=== PATIENT | female | born 1975 | race Caucasian/White ===

== ENCOUNTER 2017-12-13 05:40 | Day surgery (SDC) | payer BC, SELFPAY ==
[~2017-12-13] VITALS: Ht 165.1 cm; Wt 60.8 kg
[~2017-12-13 05:40] MED LIST: BACLOFEN10 MG PO; MAXALT MLT10 MG PO; MELOXICAM15 MG PO; NEURONTIN300 MG PO; TRAZODONE HCL100 MG PO
--- NOTE | 2017-12-13 07:44 | NUR ---
PT ALERT, ORIENTED AND SUPPORTED BY FAMILY. SHE SEEMED PREPARED, HAD FEW QUESTIONS, VERY PLEASANT, DR MARTIN CAME IN AND LET HIM VISIT WITH PT. WILL FOLLOW NEEDED
[2017-12-13] MEDS ORDERED: MAPAP325 MG PO (08:53)
[2017-12-13] MEDS ORDERED: OXYCODON-ACETA1 EAC2 PO (08:53)
[2017-12-13] MEDS ORDERED: IBUPROFEN600 MG PO (08:53)
--- NOTE | 2017-12-13 08:54 | NUR ---
12/13/17 0854 Maryam Leone 0841 RESP EVEN AND UNLABORED. PT ALSEEP WITH ORAL AIRWAY IN PLACE. RN NEEDED TO DO MINIMAL THIN THRUST TO MAINTAIN AIRWAY.
--- NOTE | 2017-12-13 09:37 | NUR ---
PT IS BACK TO DS FROM PACU. SHE IS DROWSY, BUT RESPONDS APPROPRIATELY TO QUESTIONS. REPORTING MINIMAL PAIN, WITH NO NAUSEA. WATER AND CRACKERS ON BEDSIDE TABLE WITHIN REACH. CALL LIGHT IS WITHIN REACH. NO OTHER C/O'S AT THIS TIME. WILL REASSESS WITHIN THE HOUR.
--- NOTE | 2017-12-13 10:49 | NUR ---
PT IS ASSISTED UP OOB WITH STANDBY ASSIST TO THE BATHROOM. PT IS ABLE TO VOID 600ML. SHE AMBULATES HERSELF BACK TO HER ROOM. PT HAS BEEN ABLE TO TOLERATE CRACKERS AND SIPS OF WATER. DC CRITERIA IS DISCUSSED, PT AND MOM VERBALIZE UNDERSTANDING. NO OTHER C/O'S AT THIS TIME.
--- NOTE | 2017-12-13 11:44 | NUR ---
DC INSTRUCTIONS ARE GIVEN IN FRONT OF PT'S MOM, BOTH VERBAIZE THEIR UNDERSTANDING AND ASK QUESTIONS. PT IS INSTRUCTED ON HOW BEST TO DRESS HERSELF, SHE VERBALIZES UNDERSTANDING.
--- NOTE | 2017-12-14 13:23 | OR ---
[facility] [address], [place] [address] Signed DATE OF OPERATION: 12/13/2017 SURGEON: Tacho Martin MD PREOPERATIVE DIAGNOSIS: Right inguinal hernia (painful). POSTOPERATIVE DIAGNOSIS: Right indirect inguinal hernia, painful. PROCEDURES: 1. Repair of right inguinal hernia. 2. Implantation of Prolene mesh underlay technique. ANESTHESIA: General LMA, Tacho Cole CRNA and local 10 mL of 0.25% Marcaine with epinephrine. INDICATION: This 42-year-old white woman works at [employer] in the [employer] department, does a fair amount of lifting. She is a patient of Dr. Anna Horne and Dr. Aayush Shields. She is referred for increasing pain in the right groin area. An ultrasound was performed on November 17, 2017 confirming a right inguinal hernia with protrusion of fat. There is no sign of hollow viscus herniation. She is admitted at this time to undergo repair of the hernia. Understand the risks of bleeding, infection, and recurrence. FINDINGS: The round ligament was easily identified distinct from the indirect hernia sac that was nearby. A small indirect sac was noted with herniated fat. There was no sign of hollow viscus. The fascia transversalis making of the floor of the inguinal canal was largely intact. The ring itself was somewhat enlarged. The round ligament was excised and the hernia contents reduced and implantation of Prolene mesh in an underlay technique was undertaken. Additionally, the tendon of the transversus abdominis was secured to the shelving edge of the inguinal ligament for additional coverage. DESCRIPTION OF PROCEDURE: The patient was brought to the operating room, given a general LMA-type anesthetic. Preoperative antibiotic Ancef was given. Sequential compression device stockings used and heparin subcutaneously administered. The right lower abdomen was prepared with a chlorhexidine solution and draped sterilely. A small incision was made cephalad to the pubic tubercle. Dissection was carried through the subcutaneous tissue with sharp and Electronically Signed By: TACHO MARTIN MD 12/14/17 1323 PATIENT NAME: NAT SOTO OPERATIVE REPORT DATE OF : 79 PHYSICIAN: TACHO MARTIN MD REPORT #: [id number] REPORT IS CONFIDENTIAL AND NOT TO BE RELEASED WITHOUT AUTHORIZATION [facility] [address], [place] [address] Signed electrocautery dissection identifying the external oblique fascia. This was incised along its fibers revealing the underlying ilioinguinal nerve. This was dissected free with meticulous care and reflected around the external oblique. With sharp and blunt dissection, the round ligament was dissected free from the surrounding tissue and elevated. It was transected distally. In the medial anterior aspect, a small indirect hernia sac could be identified. This was dissected free from the round ligament. The round ligament was ultimately transected and discarded. The hernia sac itself was incorporated only fat. There was no sign of hollow viscus within it. It was not large. The fascia of transversalis was largely preserved. A portion of it was incised allowing for blunt dissection the properitoneal fat away from the transversalis fascia and the herniated area able to be replaced to the properitoneal space. A segment of Prolene mesh was cut to an oval configuration and secured in an underlay technique with interrupted 2-0 Prolene suture. Good coverage of the small defect was accomplished with bolstering of the floor itself. Tendon of the transversus abdominis was secured to the shelving edge of Poupart's ligament with interrupted 2-0 Prolene as well. A 10 mL of 0.25% Marcaine with epinephrine was injected locally. The ilioinguinal nerve was replaced to its normal anatomic position and the external oblique reapproximated with running 2-0 Vicryl over it. Maria Del Carmen's layer was reapproximated with interrupted 2-0 Vicryl and skin closed with running subcuticular 3-0 Vicryl. Steri-Strips were applied as was a Mepilex silver sponge dressing and an OpSite. Blood loss was minimal. Complications none. MD TOSHA Miramontes/MODL /[id number] cc: MD Anna De Dios MD Electronically Signed By: TACHO MARTIN MD 12/14/17 1323 PATIENT NAME: NAT SOTO OPERATIVE REPORT DATE OF : 79 PHYSICIAN: TACHO MARTIN MD REPORT #: [id number] REPORT IS CONFIDENTIAL AND NOT TO BE RELEASED WITHOUT AUTHORIZATION
== END 2017-12-13 11:50 | disposition home or self-care (01) ==
LOC: DS 05:40
PROVIDERS: Surgery
PROC: 0YU50JZ Supplement Right Inguinal Region with Synthetic Substitute, Open Approach (ICD-10-PCS; principal; 2017-12-13 06:45)
DX: K40.90 Unilateral inguinal hernia, without obstruction or gangrene, not specified as recurrent (principal); F32.9 Major depressive disorder, single episode, unspecified; Z90.89 Acquired absence of other organs; Z98.51 Tubal ligation status; Z79.899 Other long term (current) drug therapy; Z98.890 Other specified postprocedural states
CPT/HCPCS: 00830; C1781; J0330; J0690; J1100; J1644; J1885; J2250; J2405; J2704; J2765; J3010; J7120

== ENCOUNTER 2020-10-02 08:55 | Day surgery (SDC) | payer BC ==
[~2020-10-02] VITALS: Ht 165.1 cm; Wt 60.5 kg
--- NOTE | ~2020-10-02 | OR ---
[facility] [address], [place] [address] Draft DATE OF OPERATION: 10/02/2020 SURGEON: Tacho Martin MD PREOPERATIVE DIAGNOSES: 1. Episodic right groin pain and swelling. 2. History of right inguinal hernia repair with mesh (2018). POSTOPERATIVE DIAGNOSIS: Right femoral hernia. PROCEDURES: 1. Repair of right femoral hernia. 2. Implantation of Prolene mesh. ANESTHESIA: General endotracheal; Colve Anne, BRUSHING OPERATOR and local 10 mL of 0.25% Marcaine with epinephrine. INDICATIONS: This 45-year-old white woman underwent right inguinal hernia repair by me two years ago in 2018. She is a patient of Dr. Shields and Dr. Horne. Operation at that time included implantation of Prolene mesh in an underlay technique. The patient works in [employer], does a fair amount of lifting and so forth and recently noted severe and nearly disabling right groin pain. She thought that there was episodic swelling as well. Clinical examination did not show signs of recurrent hernia, but there was some boggy soft tissue in the region. It was not beneath the inguinal ligament on my examination. She underwent a CT scan with and without Valsalva maneuver, this showed no sign of hollow viscus within a recurrent hernia, but did show some fat which was unclear as to its etiology upon my review with the radiologist, Dr. Justine Lambert. She is admitted at this time to undergo exploration of the area and remedy of the problem if it can be determined the underlying problem. The risks of bleeding, infection, failure to cure the problem, and other unforeseen complications were reviewed in detail with her. She understands and wished to proceed. FINDINGS: The previous hernia repair was completely intact. The defect was that of a femoral hernia. The properitoneal fat was the likely herniated viscus. The iliac artery and PATIENT NAME: NAT SOTO OPERATIVE REPORT DATE OF : 79 REPORT #: [id number] PHYSICIAN: TACHO MARTIN MD PCP: SCARLET SHIELDS MD REPORT IS CONFIDENTIAL AND NOT TO BE RELEASED WITHOUT AUTHORIZATION [facility] [address], [place] [address] Draft iliac vein were easily identified as was the empty space, which contained the hernia itself. Repair consisted of a judicious implantation of mesh and security of the conjoined tendon to the iliopubic tract with mesh augment and without encumbrance of the iliac vein or artery. DESCRIPTION OF PROCEDURE: The patient was brought to the operating room, given a general endotracheal anesthetic. Preoperative antibiotic Ancef was given. Sequential compression device stockings used and heparin subcutaneously administered. The lower abdomen area was clipped and prepared with a chlorhexidine solution and draped sterilely. The previous incision typical of right inguinal hernia incision was used for the incision. Palpation revealed no sign of abnormality at this time. Dissection was carried through the scar of the right groin incision, dissecting mostly with electrocautery. The external oblique was identified and the area freed up. Examination in the medial inferior aspect showed an area that appeared to be somewhat of a defect in what would be normally speaking in the external ring (which had been reapproximated previously). Further dissection, unroofing meticulously [id number] showed herniated fat, which was coming from beneath the inguinal ligament essentially. This area was incised and marked fully, identifying well the iliac artery and iliac vein. Clearly this represented a femoral hernia. With further blunt dissection, the properitoneal fat obviously was withdrawn, no doubt accounting for her recent symptoms of herniated properitoneal fat through the femoral canal. There was no hollow viscus. A branch of the iliac vein was secured with 3-0 silk suture. A segment of Prolene mesh was cut to a horseshoe configuration concurrent to her anatomy and placed in the properitoneal space. It was secured to the iliopubic tract as well as the conjoined tendon or essentially tendon of the transversus abdominis. Those fiber layers were then reapproximated together more fully with special care to avoid encumbrance of the iliac vein or artery. The remnants of the external sheath were reapproximated with interrupted 2-0 Prolene as well, as was the external oblique and fibers ilioinguinal ligament. A 10 mL of 0.25% Marcaine with epinephrine injected locally. Maria Del Carmen layer was reapproximated with interrupted 2-0 Vicryl and skin closed with running subcuticular 3-0 Vicryl. Steri-Strips were applied. The patient tolerated the procedure well, was ultimately extubated and transferred to the recovery room in good condition, having suffered no complication. Sponge, needle, and instrument counts reported as correct x3. Tacho Martin MD PATIENT NAME: NAT SOTO OPERATIVE REPORT DATE OF : 79 REPORT #: [id number] PHYSICIAN: TACHO MARTIN MD PCP: SCARLET SHIELDS MD REPORT IS CONFIDENTIAL AND NOT TO BE RELEASED WITHOUT AUTHORIZATION [facility] [address] [place], [place] [address] Draft /[facility] /[id number] cc: MD Scarlet Cash MD Copies: PATEL HORNE MD, RUSSELL BARR MD ~ PATIENT NAME: NAT SOTON OPERATIVE REPORT DATE OF : 79 REPORT #: [id number] PHYSICIAN: TACHO MARTIN MD PCP: SCARLET SHIELDS MD REPORT IS CONFIDENTIAL AND NOT TO BE RELEASED WITHOUT AUTHORIZATION
[~2020-10-02 08:55] MED LIST changes: +CYMBALTA20 MG PO; +IBUPROFEN600 MG PO; +MAPAP325 MG PO; +OXYCODON-ACETA1 EAC2 PO
--- NOTE | 2020-10-02 13:06 | NUR ---
10/02/20 Edy6 Mariela Guerra 1249- PT ARRIVES TO PACU NONAROUSABLE TO NOXIOUS STIMULI WITH AN OPA IN PLACE. RESP EVEN AND UNLABORED. OXYGEN SAT HIGH 90'S TO 100% ON 6L VIA MASK. 1251- PT IS GRIMACING AND MOVING AROUND IN THE BED. INSTRUCTED PT TO OPEN HER MOUTH TO REMOVE OPA. PT IS BITING DOWN ON THE OPA AND IS UNABLE TO FOLLOW INSTUCTIONS TO OPEN HER MOUTH. OPA LEFT IN PLACE AT THIS TIME. 1254- PT IS ROLLING AROUND ONTO HER RIGHT SIDE. ATTEMPTING TO TELL PT SHE IS DONE WITH SURGERY AND TO OPEN HER MOUTH TO REMOVE THE OPA. PT IS ABLE TO FOLLOW THIS INSTRUCTION NOW AND OPA REMOVED. PT CONTINUES TO MOVE AROUND IN THE BED. PT APPEARS CONFUSED AND IS NOT ANSWERING QUESTIONS YET. PT BEING REORIENTED.
[2020-10-02] MEDS ORDERED: OXYCODON-ACETA1 EAC2 PO (13:11)
[2020-10-02] MEDS ORDERED: IBUPROFEN600 MG PO (13:11)
[2020-10-02] MEDS ORDERED: ACETAMINOPHEN500 MG PO (13:12)
--- NOTE | 2020-10-02 14:30 | NUR ---
REPORTS NAUSEA IS COMPLETELY RESOLVED. PT EATING JELLO AND CRACKERS AND TAKING SIPS OF WATER. MEDICATED FOR MILD SURGICAL SITE PAIN PER EMAR. PT EDUCATED ON LOCAL ANESTHETIC WEARING OFF.
--- NOTE | 2020-10-02 14:50 | NUR ---
MEDICATED FOR NAUSEA PER EMAR. PT NOW REPORTS 1/10 SURGICAL SITE PAIN.
--- NOTE | 2020-10-02 15:04 | NUR ---
PT HAS COOL AIR BLOWING ON HER DUE TO NAUSEA. PT RESTING IN LOCKED AND LOWERED BED, CALL LIGHT WITHIN REACH, MOTHER AT THE BEDSIDE, NO FURTHER REQUESTS AT THIS TIME.
--- NOTE | 2020-10-02 15:30 | NUR ---
PT USED CALL LIGHT TO REPORT MORE NAUSEA. DR. MARTIN CONTACTED FOR ORDER OF ANTI NAUSEA MEDICATION.
--- NOTE | 2020-10-02 15:58 | NUR ---
IN TO ADMINISTER MEDICATION AND DO ASSESSMENT. PT STILL REPORTS NAUSEA. PT RESTING IN LOCKED AND LOWERED BED, SIDE RAILS UP, CALL LIGHT WITHIN REACH. MOTHER AT THE BEDSIDE, NO FURTHER REQUESTS AT THIS TIME.
--- NOTE | 2020-10-02 16:32 | NUR ---
PT UP TO USE THE RESTROOM. PT AMBULATES INDEPENDENTLY AND VOIDS WITHOUT COMPLICATION. PT BACK RESTING IN LOCKED AND LOWERED BED, SIDE RAILS UP, CALL LIGHT WITHIN REACH, MOTHER AT THE BEDSIDE.
--- NOTE | 2020-10-02 16:52 | NUR ---
DISCHARGE INSTRUCTIONS DISCUSSED AND QUESTIONS AND CONCERNS ANSWERED. PT LEFT THE UNIT VIA WHEELCHAIR. PT TRANSFERED INDEPENDENTLY FROM WHEELCHAIR TO VEHICLE WITH NO COMPLICATIONS. MOTHER SAM PROVIDED TRANSPORTATION.
== END 2020-10-02 16:45 | disposition home or self-care (01) ==
LOC: DS 08:55 → OPS 08:55 → DS 10:45 → OPS 10:45
PROVIDERS: ATTEND Surgery
PROC: 0YU70JZ Supplement Right Femoral Region with Synthetic Substitute, Open Approach (ICD-10-PCS; principal; 2020-10-02 10:45)
DX: K41.90 Unilateral femoral hernia, without obstruction or gangrene, not specified as recurrent (principal); F41.9 Anxiety disorder, unspecified; R63.4 Abnormal weight loss; Z79.899 Other long term (current) drug therapy; Z79.1 Long term (current) use of non-steroidal anti-inflammatories (NSAID); Z98.890 Other specified postprocedural states; Z68.22 Body mass index [BMI] 22.0-22.9, adult
CPT/HCPCS: C1781; J0690; J1100; J1644; J1885; J2001; J2250; J2405; J2550; J2704; J3010; J7121

== ENCOUNTER 2020-11-10 12:58 | Day surgery (SDC) | payer BC ==
[~2020-11-10 12:58] MED LIST changes: +ACETAMINOPHEN500 MG PO
--- NOTE | 2020-11-10 15:11 | NUR ---
11/10/20 1511 Maryam Moran 1506 PT ARRIVED TO PACU ON 3L VIA NC, PT AWAKE AND TALKING TO RN. VSS. COOL WASH CLOTH ON HEAD. PT DENEIS NAUSEA AND PAIN AT THIS TIME. PLAN OF CARE DISCUSSED.
--- NOTE | 2020-11-12 13:31 | OR ---
[facility] [address] [place], [place] [address] Signed DATE OF OPERATION: 11/10/2020 SURGEON: Tacho Martin MD PREOPERATIVE DIAGNOSES: Weight loss, abdominal bloating, poor appetite, diarrhea. POSTOPERATIVE DIAGNOSES: 1. Hiatal hernia without associated esophagitis. 2. Mild proximal gastritis. 3. Normal-appearing colon. PROCEDURES: 1. Esophagogastroduodenoscopy with biopsy. 2. Total colonoscopy to cecum with biopsies. ANESTHESIA: Intravenous sedation, fentanyl 250 mcg, Versed 15 mg (total). INDICATIONS: This 45-year-old white woman is a patient of and Dr. Shields. She has suffered a significant weight loss progressively over the past few months and has complaints of abdominal bloating, but no focal upper abdominal pain. She does have a history of right femoral hernia repair by me recently following a CT scan of the pelvis, which showed a fluid collection in the right lower quadrant and marked tenderness in the area. Additionally noted was a 30 mm cyst of the low left cervix. The patient has gone from 138 pounds to 107 pounds. She has had a fair amount of diarrhea at least every day for the past three weeks, which is troublesome as well. She has up to six bowel movements a day. She has no associated bleeding. She has not had biliary workup, but does have family history of biliary disease. She does not have typical biliary symptoms otherwise. She is admitted at this time to undergo upper endoscopy as well as colonoscopy to assess for inflammatory bowel disease and other causes of her problems. The risks of bleeding, infection, and perforation were reviewed with her, she understands and wished to proceed. FINDINGS: Upper endoscopy showed a poor flap valve consistent with hiatal hernia but no sign of esophagitis proper. She did have some mild diffuse gastritis. There was no ulcer. The Electronically Signed By: TACHO MARTIN MD 11/12/20 1337 PATIENT NAME: NAT SOTO OPERATIVE REPORT DATE OF : 79 REPORT #: [id number] PHYSICIAN: TACHO MARTIN MD PCP: SCARLET SHIELDS MD REPORT IS CONFIDENTIAL AND NOT TO BE RELEASED WITHOUT AUTHORIZATION [facility] [address] [place], [place] [address] Signed duodenum was normal. CLOtest was negative. On colonoscopy, the prep was excellent. Complete colonoscopy was undertaken of the cecum. There was no gross evidence of colitis, though the possibility of occult colitis remains. There was no evidence of diverticulosis or polyps. Multiple attempts in quite a lengthy effort was maintained to intubate the ileum, but it was never forthcoming. In aggregate, the colon appeared grossly normal. DESCRIPTION OF PROCEDURE: The patient was brought to the endoscopy suite and given topical lidocaine hypopharyngeal anesthesia and placed in lateral decubitus position, given intravenous sedation to the point of slurred speech and nystagmus with full cardiopulmonary monitoring. A bite block was placed. An Olympus video upper endoscope was passed in the hypopharynx. The vocal cords were transiently visualized and found to be normal. Scope was advanced to the esophagus throughout its length, it was normal. This included the distal portion. The scope was advanced to the stomach, which was insufflated with air. There was no evidence of bile within the stomach. Rugal folds appeared normal. The scope was passed to the antrum, which appeared normal as did the pylorus. The scope was passed through the pylorus into the duodenum, which was normal. Biopsies were obtained of the duodenum to assess for celiac disease. The scope was withdrawn and antral biopsies were obtained for both BRIAN and pathologic testing. Retroflexed view showed a poor flap valve and retroflex withdrawal allowed for easy visualization of the distal esophagus. This was all consistent with a poor flap valve and small hiatal hernia. There was a mild proximal gastritis, biopsies were obtained there. CLOtest biopsies were obtained and subsequently found to be negative after 30 minutes. The scope was withdrawn to the distal esophagus which was biopsied. The mucosa was normal. The scope was withdrawn to the mid esophagus which was normal. The scope was ultimately removed. Plans were then made for colonoscopy. Additional sedation was given. Digital rectal examination was normal. An Olympus video colonoscope was passed in the rectum and manipulated throughout the colon ultimately intubating the cecum itself. The prep was quite good. The ileocecal valve was slit-like and small and very subtle. Multiple attempts were made to intubate it. Various maneuvers including abdominal wall stabilization still failed to allow for adequate intubation of the ileum. It was transiently seen but not much can be said more than that. Ultimately, further efforts were deemed inadvisable and on that basis the cecum was then biopsied to assess for occult colitis. The scope was withdrawn and random biopsies were taken throughout including transverse colon, left colon and rectum. Retroflexed view was normal. Scope was removed and the patient was taken to the Electronically Signed By: TACHO MARTIN MD 11/12/20 0802 PATIENT NAME: NAT SOTO OPERATIVE REPORT DATE OF : 79 REPORT #: [id number] PHYSICIAN: TACHO MARTIN MD PCP: SCARLET SHIELDS MD REPORT IS CONFIDENTIAL AND NOT TO BE RELEASED WITHOUT AUTHORIZATION [address] [address] Signed recovery room in good condition. CONCLUDING DIAGNOSES: 1. Upper endoscopic evaluation showed a mild diffuse proximal gastritis, hiatal hernia without esophagitis. 2. Colon normal grossly. PLAN: We will recommend empiric treatment with Flagyl 250 p.o. t.i.d. We will initiate Carafate 1 g p.o. q.i.d. on empty stomach. We will organize for gallbladder ultrasound and if negative, consideration for CCK-HIDA test. MD TOSHA Miramontes/MODL /[id number] cc: MD Cornelius Cash Dr Copies: PATEL ROJAS MD ~ Electronically Signed By: TACHO MARTIN MD 11/12/20 1331 PATIENT NAME: NAT SOTO OPERATIVE REPORT DATE OF : 79 REPORT #: [id number] PHYSICIAN: TACHO MARTIN MD PCP: SCARLET SHIELDS MD REPORT IS CONFIDENTIAL AND NOT TO BE RELEASED WITHOUT AUTHORIZATION
--- NOTE | 2020-11-13 13:51 | PATH ---
[facility] [address] [facility] [place], [place] [address] Signed SPECIMEN(S): A DUODENAL BIOPSY SPECIMEN(S): B ANTRUM/PYLORUS BIOPSY SPECIMEN(S): C PROXIMAL STOMACH SPECIMEN(S): D DISTAL ESOPHAGUS SPECIMEN(S): E CECUM SPECIMEN(S): F HEPATIC FLEXURE SPECIMEN(S): G TRANSVERSE COLON SPECIMEN(S): H RECTUM BIOPSY SPECIMEN SOURCE: A. DUODENAL BIOPSY B. ANTRUM/PYLORUS BIOPSY C. PROXIMAL STOMACH D. DISTAL ESOPHAGUS E. CECUM F. HEPATIC FLEXURE G. TRANSVERSE COLON H. RECTUM BIOPSY CLINICAL HISTORY: Diarrhea, abdominal bloating, weight loss. Dx: Gastritis, hiatal hernia, normal appearing colon. MICROSCOPIC DESCRIPTION: Histologic sections of all submitted blocks are examined by light microscopy. These findings, together with the gross examination, support the pathologic diagnosis. FINAL PATHOLOGIC DIAGNOSIS: A. Duodenum, biopsy: - Reactive duodenal mucosa with minimally increased intraepithelial lymphocytosis, negative for villous blunting. B. Antrum/pylorus, biopsy: - Minimal chronic inactive gastritis. - Negative for intestinal metaplasia. - Negative for Helicobacter organisms on routine stain. C. Proximal stomach, biopsy: - Minimal chronic inactive gastritis. - Negative for intestinal metaplasia. - Negative for Helicobacter organisms on routine stain. D. Distal esophagus, biopsy: - Fragments of reactive squamous epithelium with minimal reflux changes. PATIENT NAME: NAT SOTO PATHOLOGY DATE OF : 79 REPORT #: [id number] PHYSICIAN: CHRIS PATHOLOGY PCP: SCARLET GORDILLO MD REPORT IS CONFIDENTIAL AND NOT TO BE RELEASED WITHOUT AUTHORIZATION [facility] [address] [place], [place] [address] Signed - Negative for intestinal metaplasia and dysplasia. E. Cecum, biopsy: - Benign colonic mucosa. - Negative for acute inflammation, granulomas, and microscopic colitis. F. Hepatic flexure, biopsy: - Benign colonic mucosa. - Negative for acute inflammation, granulomas, and microscopic colitis. G. Transverse colon, biopsy: - Benign colonic mucosa. - Negative for acute inflammation, granulomas, and microscopic colitis. H. Rectum, biopsy: - Benign colonic mucosa. - Negative for acute inflammation, granulomas, and microscopic colitis. DDF:cml:C2NR GROSS DESCRIPTION: Eight specimens are received in eight containers, labeled "SotoNat szymanski." A. The specimen, labeled "SotoNat szymanski, #1," and designated on the requisition "duodenal biopsy," is received in formalin and consists of one mack soft tissue fragment that measures 0.5 cm in greatest dimension. The specimen is entirely submitted in cassette (A1). B. The specimen, labeled "SotoNat szymanski, #2," and designated on the requisition "antrum/pylorus," is received in formalin and consists of one mack soft tissue fragment that measures 0.3 cm in greatest dimension. The specimen is entirely submitted in cassette (B1). C. The specimen, labeled "Nat Soto, #3," and designated on the requisition "proximal stomach," is received in formalin and consists of one mack soft tissue fragment that measures 0.4 cm in greatest dimension. The specimen is entirely submitted in cassette (C1). D. The specimen, labeled "Nat Soto, #4," and designated on the requisition "distal esophagus biopsy," is received in formalin and consists of three white-mack soft tissue fragment(s) that measure 0.3-0.4 cm in greatest dimension. The specimen is entirely submitted in cassette (D1). E. The specimen, labeled "Nat Soto, #5," and designated on the requisition "cecum," is received in formalin and consists of two mack soft tissue fragment(s) that measure 0.3 and 0.3 cm in greatest dimension. The specimen is entirely submitted in cassette (E1). F. The specimen, labeled "Nat Soto, #6," and designated on the requisition "hepatic flexure," is received in formalin and consists of one mack soft tissue fragment that measures 0.5 cm in PATIENT NAME: NAT SOTO PATHOLOGY DATE OF : [birth year] REPORT #: [id number] PHYSICIAN: CHRIS JORDAN PCP: SCARLET GORDILLO MD REPORT IS CONFIDENTIAL AND NOT TO BE RELEASED WITHOUT AUTHORIZATION [facility] [address] [place] [id number] Signed greatest dimension. The specimen is entirely submitted in cassette (F1). G. The specimen, labeled "Nat Soto, #7," and designated on the requisition "transverse colon," is received in formalin and consists of two mack soft tissue fragment(s) that measure 0.3 and 0.3 cm in greatest dimension. The specimen is entirely submitted in cassette (G1). H. The specimen, labeled "Nat Soto, #8," and designated on the requisition "rectum biopsy," is received in formalin and consists of two mack soft tissue fragment(s) that measure 0.3 and 0.4 cm in greatest dimension. The specimen is entirely submitted in cassette (H1). FB (under the direct supervision of a pathologist) The Gross Description was prepared using a voice recognition system. The report was reviewed for accuracy; however, sound-alike word errors, addition and/or deletions may occur. If there is any question about this report, please contact Client Services. PERFORMING LABORATORY: The technical component was performed by [employer] [facility] [place] [address] (Managed Services Sales Consultant: Lauren Valladares MD; CLIA# [id number]). Professional interpretation was performed by [facility] [place] [address] (CLIA# [id number]). Diagnostician: Federico Peraza DO Pathologist Electronically Signed 11/13/2020 Copies: ~ PATIENT NAME: NAT SOTO PATHOLOGY DATE OF : [birth year] REPORT #: [id number] PHYSICIAN: CHRIS JORDAN PCP: SCARLET GORDILLO MD REPORT IS CONFIDENTIAL AND NOT TO BE RELEASED WITHOUT AUTHORIZATION
== END 2020-11-10 15:52 | disposition home or self-care (01) ==
LOC: OPS 12:58 → DS 14:00 → OPS 14:00
PROVIDERS: ATTEND Surgery
PROC: 0DB68ZX Excision of Stomach, Via Natural or Artificial Opening Endoscopic, Diagnostic (ICD-10-PCS; 2020-11-10)
PROC: 0DB38ZX Excision of Lower Esophagus, Via Natural or Artificial Opening Endoscopic, Diagnostic (ICD-10-PCS; 2020-11-10)
PROC: 0DBH8ZX Excision of Cecum, Via Natural or Artificial Opening Endoscopic, Diagnostic (ICD-10-PCS; 2020-11-10)
PROC: 0DBL8ZX Excision of Transverse Colon, Via Natural or Artificial Opening Endoscopic, Diagnostic (ICD-10-PCS; 2020-11-10)
PROC: 0DBP8ZX Excision of Rectum, Via Natural or Artificial Opening Endoscopic, Diagnostic (ICD-10-PCS; 2020-11-10)
PROC: 0DB98ZX Excision of Duodenum, Via Natural or Artificial Opening Endoscopic, Diagnostic (ICD-10-PCS; principal; 2020-11-10 14:00)
PROC: 0DB78ZX Excision of Stomach, Pylorus, Via Natural or Artificial Opening Endoscopic, Diagnostic (ICD-10-PCS; 2020-11-10 14:00)
DX: K29.50 Unspecified chronic gastritis without bleeding (principal); K44.9 Diaphragmatic hernia without obstruction or gangrene; F41.9 Anxiety disorder, unspecified; K21.00 Gastro-esophageal reflux disease with esophagitis, without bleeding; Z79.899 Other long term (current) drug therapy; Z79.1 Long term (current) use of non-steroidal anti-inflammatories (NSAID)
CPT/HCPCS: 99153; G0500; J2250; J3010; J7121

== ENCOUNTER 2021-01-15 05:40 | Day surgery (SDC) | payer BC ==
[~2021-01-15] VITALS: Ht 165.1 cm; Wt 47.0 kg
[~2021-01-15 05:40] MED LIST changes: +MELOXICAM10 MG PO
--- NOTE | 2021-01-15 08:59 | NUR ---
01/15/21 0859 Mariela Guerra 0852- PT ARRIVES TO PACU NONAROUSABLE TO NOXIOUS STIMULI WITH AN OPA IN PLACE. PT NEEDING A JAW THRUST TO MAINTAIN PATENT AIRWAY. RESP EVEN AND UNLABORED. OXYGEN SAT HIGH 90'S TO 100% ON 10L VIA MASK.
[2021-01-15] MEDS ORDERED: MOTRIN IB200 MG PO (09:07)
[2021-01-15] MEDS ORDERED: TYLENOL EXTRA500 MG PO (09:09)
[2021-01-15] MEDS ORDERED: ENDOCET 7.5-321 EACH PO (09:10)
--- NOTE | 2021-01-15 09:43 | NUR ---
PATIENT TO ROOM FROM PACU, BEDSIDE REPORT FROM MARVEL LINDA. PATIENT HAS 4 PUNCTURE SITES FROM SURGERY, STERI STRIPS INTACT WITH SMALL AMOUNT OF RED DRAINAGE. PATIENT APPEARS DROWSY, AWAKES TO VERBAL STIMULI. SKIN WARM AND CLAMMY, PATIENT AFEBRILE. APPEARS TO BE POSSIBLY SIDE EFFECT FROM MORPHINE ADMINISTRATION IN OR. PROIVED COOL AIR. PATIENT REPORTS NO PAIN, NO NAUSEA.
--- NOTE | 2021-01-15 10:37 | NUR ---
PATIENT REPORTS NAUSEA AND REQUESTING MEDICAITON. CALL TO DR. MARTIN NEW ORDER FOR PHENERGAN 12.5 MG IV. UPDATED PATIENT ON POC. STERI STRIPS INTACT WITH NO NEW DRAINAGE. VSS. PATIENT REPORTS 0/10 PAIN. NO OTHER NEEDS AT THIS TIME.
--- NOTE | 2021-01-15 12:09 | NUR ---
PATIENT AWAKE, PHENERGAN IV EFFECTIVE. PATIENT NOW EATING SNACKS. RATES PAIN 3/10 ON PAIN SCALE. DISCUSSED PAIN MANAGEMENT. PLAN TO ADMINISTER PAIN MEDICATION PER MAR. NO OTHER NEEDS AT THIS TIME.
--- NOTE | 2021-01-15 13:23 | NUR ---
PATIENT UP TO BATHROOM, TOLERATED ACTIVITY. PATIENT VOIDED 400 ML OF CLEAR YELLOW URINE. SMALL AMOUNT OF DRAINAGE AT SURGICAL SITE, > AT UNBILICUS SITE. REINFORCED WITH BANDAIDS OVER STERI STRIPS. PATIENT BACK TO ROOM RESTING IN BED. WITH ACTIVITY PATIENT REPORTED FEELING FLUSHED, NOTED SOME REDNESS ON CHEST. PATIENT USED SPLINTING METHOD WITH GETTING UP. ENCOURAGED PATIENT TO COUGH AND DEEP BREATHE.
--- NOTE | 2021-01-15 13:45 | NUR ---
PROVIDED PATIENT WITH DISCHARGE INSTRUCTION. PATIENT VERBALIZED UNDERSTANDING. ANSWERED QUESTIONS AND CONCERNS. REMOVED IV, CATH INTACT. PATIENT DRESSED SELF. PATIENT PROVIDED WITH WHEELCHAIR RIDE TO CAR. APPEARED TO TOLERATE ACTIVITY WELL.
--- NOTE | 2021-01-16 11:23 | PATH ---
[facility] [address] [facility] [place], [place] [address] Signed SPECIMEN(S): A GALLBLADDER SPECIMEN SOURCE: A. GALLBLADDER CLINICAL HISTORY: Laparoscopic cholecystectomy. Pre: Postprandial bloating, upper abdominal pain, loss of appetite, chronic diarrhea, acalculous cholecystitis. FINAL PATHOLOGIC DIAGNOSIS: Gallbladder, cholecystectomy: - Chronic cholecystitis. NAL:cml:C2NR MICROSCOPIC EXAMINATION: Histologic sections of all submitted blocks are examined by light microscopy. These findings, together with the gross examination, support the pathologic diagnosis. GROSS DESCRIPTION: The specimen, labeled "RP, gallbladder," is received in formalin and consists of Specimen: Previously opened gallbladder. Dimensions: 6.5 cm in length and 4.3 cm in inner circumference. Serosa: Violaceous and smooth. Cystic Duct: Unobstructed. Calculi: No calculi are grossly identified within the gallbladder or within the container. Mucosa: Green-brown and velvety. Wall thickness: 0.3 cm. Lymph node: No pericystic lymph nodes are grossly identified. Additional: None. Mangle Tender sections are submitted in cassette (A1). JS (under the direct supervision of a pathologist) The Gross Description was prepared using a voice recognition system. The report was reviewed for accuracy; however, sound-alike word errors, addition and/or deletions may occur. If there is any question about this report, please contact Client Services. PERFORMING LABORATORY: The technical component was performed by [employer], Tamar Estradafernando K[facility], PATIENT NAME: NAT SOTO PATHOLOGY DATE OF : [birth year] REPORT #: [id number] PHYSICIAN: CHRIS JORDAN PCP: SCARLET GORDILLO MD REPORT IS CONFIDENTIAL AND NOT TO BE RELEASED WITHOUT AUTHORIZATION [facility] [address] [place], [place] [address] [place] [id number] (Administrative Office Manager: Lauren Valladares MD; CLIA# [id number]).Professional interpretation was performed by [facility], [address] [address] (CLIA# [id number]). Diagnostician: Chantal Ferreira MD Pathologist Electronically Signed 01/16/2021 Copies: ~ PATIENT NAME: NAT SOTO PATHOLOGY DATE OF : [birth year] REPORT #: [id number] PHYSICIAN: CHRIS JORDAN PCP: SCARLET GORDILLO MD REPORT IS CONFIDENTIAL AND NOT TO BE RELEASED WITHOUT AUTHORIZATION
--- NOTE | 2021-01-17 10:16 | OR ---
[facility] [address] [place], [place] [address] Signed DATE OF OPERATION: 01/15/2021 SURGEON: Tacho Martin MD PREOPERATIVE DIAGNOSES: 1. Chronic acalculous cholecystitis with significant weight loss. 2. CCK-HIDA test ejection fraction of 4% with reproduction of symptoms of right subcostal pain and bloating fullness. POSTOPERATIVE DIAGNOSES: 1. Chronic acalculous cholecystitis with significant weight loss. 2. CCK-HIDA test ejection fraction of 4% with reproduction of symptoms of right subcostal pain and bloating fullness. PROCEDURE: 1. Laparoscopic cholecystectomy with intraoperative cholangiogram. 2. Surgeon-directed fluoroscopy. ANESTHESIA: General endotracheal; Tacho Cole CRNA and local 20 mL of 0.25% Marcaine with epinephrine. INDICATION: This 45-year-old white woman is a patient of Dr. Horne and Dr. Shields. She has had weight loss largely related to inability and unwilling to eat over time. Notably, she underwent right inguinal hernia repair by me in 2017. Subsequently in September of 2020, a right femoral hernia repair. Significant right groin pain that she had at that time resolved. She has had persistent weight loss and feeling "run down." She has had abdominal bloating following meals and marked diminishment of her appetite. A pelvic CT scan was performed concordant to her right inguinal and femoral hernia repair showing no sign of pelvic mass or anything of that sort. A gallbladder ultrasound performed November 25, 2020, showed no sign of stones of the gallbladder. Subsequent CCK-HIDA test performed December 11, 2020, showed an ejection fraction of 3% with duplication of some of her symptoms with CCK infusion. She has an extensive family history of biliary disease requiring cholecystectomy. Notably also, however, it is noted her father suffered pancreatic cancer, discovered at the time of cholecystectomy several years ago, for which she ultimately underwent a Whipple resection and remains alive and well without sign of recurrent disease. Electronically Signed By: TACHO MARTIN MD 01/17/21 1016 PATIENT NAME: NAT SOTO OPERATIVE REPORT DATE OF : 79 REPORT #: [id number] PHYSICIAN: TACHO MARTIN MD PCP: SCARLET SHIELDS MD REPORT IS CONFIDENTIAL AND NOT TO BE RELEASED WITHOUT AUTHORIZATION [facility] [address] [place], [place] [address] Signed The preoperative CA 19-9 tumor marker level was found to be normal. Her liver enzymes are normal. She is admitted at this time to undergo cholecystectomy for presumed acalculous cholecystitis. She understands the risks of bleeding, infection, bile duct injury, need for open procedure, and of course failure to cure her symptoms. She understands and she wished to proceed. FINDINGS: A thin body habitus was noted as expected. There was no sign of ascites or carcinomatosis. Pelvic organs were not identified. Liver appeared normal. The gallbladder had chronic inflammatory change and adhesions of omentum to its undersurface. There was, thus, somewhat enlarged pericholecystic lymph node indicative of chronic inflammation. Cholangiogram performed showed no sign of abnormality and specifically no abnormality of the distal bile duct through the pancreatic head. The gallbladder once opened showed mild chronic inflammatory change of the mucosa. No sign of cholesterolosis. No stones and no neoplasm. DESCRIPTION OF PROCEDURE: The patient was brought to the operating room, given a general endotracheal anesthetic. Preoperative antibiotic Ancef was given. Sequential compression device stockings were used and heparin subcutaneously administered. The abdomen was prepared with chlorhexidine solution and draped sterilely. An infraumbilical incision was made and using an open Julia cannula technique, the abdomen was entered without problem. Intraabdominal inspection was undertaken after administration of CO2 pneumoperitoneum to a level of 14 mmHg. Intraabdominal inspection showed no sign of ascites or carcinomatosis. The liver appeared normal. The stomach was normal. There was no abnormality in the region of the duodenal sweep. The gallbladder looked chronically inflamed. Three additional trocars were placed in usual configuration in the subxiphoid, right midclavicular, and right anterior axillary line. The gallbladder was elevated cephalad and retracted and found to have omental adhesions to its undersurface. These were taken down with blunt and electrocautery dissection. The gallbladder was elevated more fully and the infundibulum grasped and retracted laterally. Using blunt and electrocautery dissection, the triangle of Calot was dissected free identifying easily a very dominant cystic arterial branch. The cystic duct was dissected free and a small pericholecystic lymph node noted. Once the cystic duct was well identified, a clipper was applied across gallbladder cystic duct junction and a transverse choledochotomy made in the cystic duct. Egress of clear bile was noted upon milking of the duct in a retrograde fashion. Using the Reyes-type cholangiocatheter, intraoperative cholangiography was undertaken showing free flow of contrast in biliary tree with prompt emptying into the duodenum. The cystic duct was reasonably lengthy. There was no sign of biliary anomaly. There was no sign of narrowing of the common bile duct through the area of the head of the pancreas. The catheter was removed. The cystic duct was triply clipped and divided and the gallbladder dissected free in a Electronically Signed By: TACHO MARTIN MD 01/17/21 1016 PATIENT NAME: NAT SOTO OPERATIVE REPORT DATE OF : 79 REPORT #: [id number] PHYSICIAN: TACHO MARTIN MD PCP: SCARLET SHIELDS MD REPORT IS CONFIDENTIAL AND NOT TO BE RELEASED WITHOUT AUTHORIZATION [facility] [address] [place], [place] [address] Signed retrograde fashion. The cystic arterial branch was doubly clipped and divided as well. The gallbladder was extracted through the infraumbilical port site, opened on the back table and found to have chronic inflammatory change of the mucosa, but no sign of cholesterolosis, stones, or neoplasm. Irrigation was undertaken in subhepatic space. There was no sign of bile leak, bleeding, or other problems. Inspection inferiorly into the abdomen showed no sign of ascites. The pelvic organs were not visualized and additional measures to visualize them were not undertaken. The trocars were removed under direct visualization showing no sign of bleeding. The infraumbilical fascial incision was reapproximated with interrupted 0 Vicryl suture. A 20 mL of 0.25% Marcaine with epinephrine injected locally. The skin was then closed with interrupted 3-0 Vicryl. Steri-Strips were applied. The patient was ultimately extubated and transferred to the recovery room in good condition having suffered no complications. Sponge, needle, and instrument counts reported as correct x3. MD TOHSA Miramontes/MANE /[id number] cc: MD Scarlet Cash MD Copies: PATEL HORNE MD, RUSSELL BARR MD ~ Electronically Signed By: TACHO MARTIN MD 01/17/21 1016 PATIENT NAME: NAT SOTO OPERATIVE REPORT DATE OF : 79 REPORT #: [id number] PHYSICIAN: TACHO MARTIN MD PCP: SCARLET SHIELDS MD REPORT IS CONFIDENTIAL AND NOT TO BE RELEASED WITHOUT AUTHORIZATION
== END 2021-01-15 13:45 | disposition home or self-care (01) ==
LOC: DS 05:40
PROVIDERS: ATTEND Surgery
PROC: BF13YZZ Fluoroscopy of Gallbladder and Bile Ducts using Other Contrast (ICD-10-PCS; 2021-01-15)
PROC: 0FT44ZZ Resection of Gallbladder, Percutaneous Endoscopic Approach (ICD-10-PCS; principal; 2021-01-15 06:45)
DX: K81.1 Chronic cholecystitis (principal); R63.4 Abnormal weight loss; K41.90 Unilateral femoral hernia, without obstruction or gangrene, not specified as recurrent; F41.9 Anxiety disorder, unspecified; K52.9 Noninfective gastroenteritis and colitis, unspecified; Z98.890 Other specified postprocedural states; Z80.0 Family history of malignant neoplasm of digestive organs
CPT/HCPCS: 00790; 74300; J0330; J0690; J1100; J1644; J1885; J2250; J2270; J2405; J2550; J2704; J2765; J3010; J7121; Q9967